=== PATIENT | male | born 1990 | race Caucasian/White ===

== ENCOUNTER 2018-01-26 19:20 | Emergency (ER) | payer BC ==
[2018-01-26] MEDS ORDERED: Bacitracin/Neomycin/Polymyxin B Oint 0.9 GM U/D Packet TOP ONE (20:07)
--- NOTE | 2018-01-26 20:32 | EDM.PDOC ---
ED HPI GENERAL MEDICAL PROBLEM - General Chief Complaint: Laceration Stated Complaint: laceration Time Seen by Provider: 01/26/18 19:30 Source of Information: Reports: Patient History Limitations: Reports: No Limitations - History of Present Illness INITIAL COMMENTS - FREE TEXT/NARRATIVE: Patient is a 27-year-old who is seen with chief complaint laceration in the plantar aspect of right foot patient states that he stepped on broad tip at this time I saw it and felt that he needed sutures Onset: Today Duration: Hour(s):, Constant Location: Reports: Lower Extremity, Right Quality: Reports: Ache Severity: Mild Improves with: Reports: Other (Pressure) Worsens with: Reports: None Associated Symptoms: Reports: No Other Symptoms - Related Data Allergies Allergy/AdvReac Type Severity Reaction Status Date / Time No Known Allergies Allergy Verified 01/26/18 20:22 Home Meds: Home Meds Amiodarone [Cordarone] 200 mg PO DAILY 01/26/18 [History] Aspirin [Halfprin] 81 mg PO DAILY 01/26/18 [History] Carvedilol 25 mg PO DAILY 01/26/18 [History] Lisinopril 5 mg PO DAILY 01/26/18 [History] Warfarin Sodium [Coumadin] 3 mg PO TUTH@18 01/26/18 [History] Warfarin [Coumadin] 4 mg PO SUMOWEFRSA@1800 01/26/18 [History] Past Medical History Cardiovascular History: Reports: Afib, Heart Murmur, Heart Valve Replacement, Stents Other Cardiovascular History: Open heart surgery at age [age], and 17. Heart valve replacement x 2. Hx. mitral valve insuffiency - Past Surgical History Cardiovascular Surgical History: Reports: Coronary Artery Stent, Valve Replacement, Vascular Surgery Social & Family History - Tobacco Use Smoking Status *Q: Current Every Day Smoker Years of Tobacco use: 6 Packs/Tins Daily: 0.5 Used Tobacco, but Quit: No Second Hand Smoke Exposure: No - Caffeine Use Caffeine Use: Reports: Soda - Recreational Drug Use Recreational Drug Use: No ED ROS GENERAL - Review of Systems Review Of Systems: See Below Constitutional: Reports: No Symptoms HEENT: Reports: No Symptoms Respiratory: Reports: No Symptoms Cardiovascular: Reports: No Symptoms Endocrine: Reports: No Symptoms GI/Abdominal: Reports: No Symptoms : Reports: No Symptoms Musculoskeletal: Reports: No Symptoms Skin: Reports: No Symptoms Neurological: Reports: No Symptoms Psychiatric: Reports: No Symptoms Hematologic/Lymphatic: Reports: No Symptoms Immunologic: Reports: No Symptoms ED EXAM, SKIN/RASH Exam: See Below Exam Limited By: No Limitations General Appearance: Alert, WD/WN, No Apparent Distress Ears: Normal External Exam, Normal Canal, Hearing Grossly Normal, Normal TMs Nose: Normal Inspection, Normal Mucosa, No Blood Throat/Mouth: Normal Inspection, Normal Lips, Normal Teeth, Normal Gums, Normal Oropharynx, Normal Voice, No Airway Compromise Head: Atraumatic, Normocephalic Neck: Normal Inspection, Supple, Non-Tender, Full Range of Motion Respiratory/Chest: No Respiratory Distress, Lungs Clear, Normal Breath Sounds, No Accessory Muscle Use, Chest Non-Tender Cardiovascular: Normal Peripheral Pulses, Regular Rate, Rhythm, No Edema, No Gallop, No JVD, No Murmur, No Rub GI/Abdominal: Normal Bowel Sounds, Soft, Non-Tender, No Organomegaly, No Distention, No Abnormal Bruit, No Mass (Male) Exam: No Hernia, Normal Inspection, Normal Prostate, Circumcised Rectal (Males) Exam: Deferred Back Exam: Normal Inspection, Full Range of Motion, NT Extremities: Other (Laceration plantar area foot V shape about 1 cm) Neurological: Alert, Oriented, CN II-XII Intact, Normal Cognition, Normal Gait, Normal Reflexes, No Motor/Sensory Deficits Psychiatric: Normal Affect, Normal Mood Lymphatic: No Adenopathy ED SKIN PROCEDURES - Laceration/Wound Repair Right Middle Distal Foot Lac/Wound length In cm: 1 Appearance: Subcutaneous (Full-thickness), Clean Distal NVT: Neuro & Vascular Intact Anesthetic Type: Local Local Anesthesia - Lidocaine (Xylocaine): 1% Plain Local Anesthetic Volume: 2cc Skin Prep: Chlorhexidine (Hibiciens) Exploration/Debridement/Repair: In a Bloodless Field Closed with: Sutures Suture Size: 4-0 Suture Type: Nylon (2 sutures were placed patient tolerated well the procedure) Course - Orders/Labs/Meds Meds: Medications Discontinued Medications Generic Name Dose Route Start Last Admin Trade Name Freq PRN Reason Stop Dose Admin Lidocaine HCl 5 ml 01/26/18 20:07 01/26/18 20:22 Xylocaine-Mpf 1% INJECT 01/26/18 20:08 5 ml ONETIME ONE Administration Neomycin/Polymyxin/Bacitracin 1 each 01/26/18 20:07 01/26/18 20:21 Triple Antibiotic Oint TOP 01/26/18 20:08 1 each ONETIME ONE Administration Departure - Departure Time of Disposition: 20:33 Disposition: Home, Self-Care 01 Condition: Fair Clinical Impression: Broken skin - Discharge Information Referrals: PCP,Unknown [Primary Care Provider] - Care Plan Goals: Patient was given 1% Xylocaine after appropriate levels of anesthesia using nylon 2 interrupted sutures were placed patient tolerated well procedure sent home with in good shape
[2018-01-26 22:36] VITALS: BP 139/77
== END 2018-01-26 20:45 | disposition home or self-care (01) ==
LOC: LL.ED 19:20
DX: S91.311A Laceration without foreign body, right foot, initial encounter (principal); F17.210 Nicotine dependence, cigarettes, uncomplicated; Z79.82 Long term (current) use of aspirin; Z79.899 Other long term (current) drug therapy; W26.8XXA Contact with other sharp object(s), not elsewhere classified, initial encounter
CPT/HCPCS: 12001; 99282

== ENCOUNTER 2021-11-03 08:09 | Emergency (ER) | payer BC ==
[2021-11-03 08:31] VITALS: BP 131/61; PULSE 61
[2021-11-03 09:07] LABS: CHLORIDE,CL 103 mmol/L (98-107); SODIUM,NA 139 mmol/L (136-145)
[2021-11-03 09:14] LABS: ANION GAP 14.9 meq/L (7-15)
[2021-11-03] MEDS: Potassium Chloride 20 MEQ Tab.ER PO ONE (10:00)
== END 2021-11-03 10:30 | disposition home or self-care (01) ==
LOC: LL.ED 08:09
DX: R10.13 Epigastric pain (principal); I48.91 Unspecified atrial fibrillation; Z95.5 Presence of coronary angioplasty implant and graft; Z79.82 Long term (current) use of aspirin; Z79.899 Other long term (current) drug therapy
CPT/HCPCS: 36415; 71046; 74019; 80053; 82150; 83690; 83880; 84484; 85025; 85610; 93005; 99284-25; A9270-GY

== ENCOUNTER 2022-08-23 22:29 | Emergency (ER) | payer BC ==
[2022-08-23] MEDS ORDERED: Sodium Chloride 0.9% 10 ML Syringe FLUSH PRN (22:49)
[2022-08-23] MEDS ORDERED: Adenosine 6 MG/2 ML SDV IVPUSH ONE (22:51)
[2022-08-23 23:12] LABS: CHLORIDE,CL 101 mmol/L (98-107); SODIUM,NA 135 mmol/L (136-145)
[2022-08-23 23:18] LABS: ANION GAP 16.7 meq/L (7-15); ESTIMATED GFR 99 mL/min (>=60)
[2022-08-23] MEDS ORDERED: Metoprolol Tartrate 5 MG/5 ML SDV IVPUSH ONE ×3 (23:25→23:37)
[2022-08-23] MEDS ORDERED: Sodium Chloride 0.9% 1,000 ML IV ONE (23:40)
[2022-08-23] MEDS ORDERED: Etomidate 2 MG/ML 10 ML SDV IVPUSH ONE (23:51)
[2022-08-24 03:04] VITALS: BP 98/73; PULSE 70
== END 2022-08-24 01:40 | disposition home or self-care (01) ==
LOC: LL.ED 22:29
DX: I47.20 Ventricular tachycardia, unspecified (principal); Z79.82 Long term (current) use of aspirin; Z79.899 Other long term (current) drug therapy; Z79.01 Long term (current) use of anticoagulants
CPT/HCPCS: 36415; 71045; 80053; 83605; 83735; 84484; 85025; 85610; 92950; 93005; 96374; 99285; J3490; J7030

== ENCOUNTER 2022-12-01 20:46 | Emergency (ER) | payer BC ==
[2022-12-01] MEDS ORDERED: Diltiazem 25 MG/5 ML SDV IVPUSH ONE (20:58)
[2022-12-01] MEDS ORDERED: Adenosine 6 MG/2 ML SDV ONE (21:01)
[2022-12-01 21:22] LABS: ANION GAP 13.5 meq/L (7-15); CHLORIDE,CL 102 mmol/L (98-107); SODIUM,NA 138 mmol/L (136-145)
[2022-12-01 21:25] LABS: ESTIMATED GFR 90 mL/min (>=60)
[2022-12-01 23:07] VITALS: BP 103/63; PULSE 90
== END 2022-12-01 22:40 | disposition home or self-care (01) ==
LOC: LL.ED 20:46
DX: I47.1 Supraventricular tachycardia (principal); I45.10 Unspecified right bundle-branch block; I48.91 Unspecified atrial fibrillation; Z95.5 Presence of coronary angioplasty implant and graft; Z79.82 Long term (current) use of aspirin; Z79.899 Other long term (current) drug therapy; Z79.01 Long term (current) use of anticoagulants
CPT/HCPCS: 36415; 71045; 80053; 85025; 85379; 85610; 93005; 93010; 96374; 99284; 99285-25; J3490

== ENCOUNTER 2023-01-17 09:40 | Emergency (ER) | payer BC ==
[2023-01-17 10:24] LABS: ANION GAP 4.9 meq/L (7-15); CHLORIDE,CL 101 mmol/L (98-107); SODIUM,NA 137 mmol/L (136-145)
[2023-01-17 10:26] LABS: ESTIMATED GFR 116 mL/min (>=60)
[2023-01-17 15:50] VITALS: BP 113/71; PULSE 59
== END 2023-01-17 11:30 | disposition home or self-care (01) ==
LOC: LL.ED 09:40
DX: R10.13 Epigastric pain (principal); I48.91 Unspecified atrial fibrillation; Z79.82 Long term (current) use of aspirin; Z79.01 Long term (current) use of anticoagulants; Z79.899 Other long term (current) drug therapy; Z72.0 Tobacco use
CPT/HCPCS: 36415; 80053; 81001; 82150; 82550; 83615; 83690; 84484; 85025; 85610; 93005; 93010; 99284

== ENCOUNTER 2023-02-06 00:03 | Emergency (ER) | payer BC ==
[2023-02-06 00:09] VITALS: BP 156/85; PULSE 66
[2023-02-06] MEDS ORDERED: Sodium Chloride 0.9% 10 ML Syringe FLUSH PRN (00:26)
[2023-02-06] MEDS ORDERED: Iopamidol 612 MG/ML 100 ML Bottle IVPUSH ONE (01:11)
[2023-02-06] MEDS ORDERED: Sodium Chloride 0.9% 1,000 ML IV ONE (01:26)
[2023-02-06 01:39] LABS: ANION GAP 8.7 meq/L (7-15); CHLORIDE,CL 104 mmol/L (98-107); SODIUM,NA 140 mmol/L (136-145)
[2023-02-06 01:46] LABS: ESTIMATED GFR 117 mL/min (>=60)
== END 2023-02-06 04:00 | disposition home or self-care (01) ==
LOC: LL.ED 00:03
DX: K80.20 Calculus of gallbladder without cholecystitis without obstruction (principal); I48.91 Unspecified atrial fibrillation; Z79.01 Long term (current) use of anticoagulants; Z79.82 Long term (current) use of aspirin; Z79.899 Other long term (current) drug therapy
CPT/HCPCS: 36415; 74178; 80053; 81003; 83605; 83690; 85025; 96360; 99284; 99284-25; J7030; Q9967